=== PATIENT | female | born 1960 | race Caucasian/White ===

== ENCOUNTER 2017-03-13 18:00 | Emergency (ER) | payer BC, SELFPAY ==
[2017-03-13 18:33] VITALS: BP 128/83; PULSE 92; RESP 18; TEMP 36.6; O2SAT 94; BMI 23.5
[2017-03-13 18:42] LABS: Adenovirus,PCR Not Detected (NotDetected); Bordetella Pertussis Not Detected (NotDetected); Chlamydophila Pneumoniae, PCR Not Detected (NotDetected); Coronavirus 229E Not Detected (NotDetected); Coronavirus NL63 Not Detected (NotDetected); Coronavirus OC43 Not Detected (NotDetected); Coronovirus HKU1,PCR Not Detected (NotDetected); Human Metapneumovirus Not Detected (NotDetected); Influenza A, PCR Not Detected (NotDetected); Influenza AH1, 2009 Not Detected (NotDetected); Influenza AH1, PCR Not Detected (NotDetected); Influenza AH3,PCR Not Detected (NotDetected); Influenza B, PCR Not Detected (NotDetected); Mycoplasma Pneumoniae, PCR Not Detected (NotDected); Parainfluenza 1, PCR Not Detected (NotDetected); Parainfluenza 2, PCR Not Detected (NotDetected); Parainfluenza 3, PCR Not Detected (NotDetected); Parainfluenza 4, PCR Not Detected (NotDetected); Respiratory Syncytial Virus Not Detected (NotDetected); Rhinovirus/Enterovirus Not Detected (NotDetected)
--- NOTE | 2017-03-13 18:45 | HMH.EDUTC ---
[facility] [place] Clinical Impression: Upper respiratory infection Qualifiers: URI type: unspecified URI Qualified Code(s): J06.9 - Acute upper respiratory infection, unspecified Disposition: Home, Self-Care Condition on Discharge: Good Instructions: Cough, DI for Nasal Congestion, Sore Throat Additional Instructions: Follow up with family doctor FOllow up with family doctor to get results of upper respiratory panel Begin taking prescribed medication Return if needed Over the counter Motrin or Tylenol as needed for fever or pain Referrals: Sen Rdz [Primary Care Provider] - Time of Disposition: 19:23 Medical Decision Making - Medical Records Medical records reviewed: Yes: I reviewed the patient's medical records. Vital Signs: 03/13/17 18:33 Temperature 97.9 F Temperature Source Temporal Artery Scan Pulse Rate [Right Radial] 92 H Respiratory Rate 18 Blood Pressure [Right Arm] 128/83 Blood Pressure Mean [Right Arm] 98 Blood Pressure Source [Right Arm] Automatic Cuff Blood Pressure Position [Right Arm] Sitting 02 Sat by Pulse Oximetry 94 L Oxygen Delivery Method Room Air Orders (Tests/Meds): ED MEDICATIONS Discontinued Medications Generic Name Dose Route Start Last Admin Trade Name Lucianoq PRN Reason Stop Dose Admin Ceftriaxone Sodium 1 gm 03/13/17 19:18 Rocephin 1gm Vial IM 03/13/17 19:19 ONCE ONE Lidocaine HCl 0 ml 03/13/17 19:18 Lidocaine 1% 10ml Mdv IM 03/13/17 19:19 ONCE ONE Methylprednisolone Sodium Succinate 125 mg 03/13/17 19:18 Solu-Medrol 125mg/2ml Vial IM 03/13/17 19:19 ONCE ONE ORDERS Category Date Time Status Upper Respiratory Panel, PCR Stat Lab 03/13/17 18:30 Received - Roel Inquiry Pt receiving controlled substance: No Roel was queried for this patient: No [facility] [place] - General Stated complaint: body aches Mode of Arrival: Family Vehicle Source of Information: Patient Limitations: No Limitations Description of Symptoms (Recalled from Triage Doc. by RN): PT STATES SHE HAS HAD A RUNNY NOSE, HEAD CONGESTION, AND BODY ACHES FOR 4 WEEKS. HEENT Symptoms (Recalled from RN notes): Yes (RUNNY NOSE, HEAD CONGESTION,FEVER BODY ACHES) Resp Symptoms (Recalled from RN notes): No Skin Symptoms (Recalled from RN notes): No MS Symptoms (Recalled from RN notes): No Functional Status (Recalled from RN notes): NA - History of Present Illness Provider Complaint: Patient state that she has been having stuffy nose, cough sore throat and upper respiratory symptoms now for almost a month State that she has seen family doctor about 2 weeks ago and was given medication for it but state hat she is now having body aches chills and flu like symptoms - Related Data Allergies Allergy/AdvReac Type Severity Reaction Status Date / Time No Known Allergies Allergy Verified 03/13/17 18:40 - Worker's Comp Is this a Worker's Comp case?: No [facility] History I have reviewed the patient's past medical history: Yes - *Social History Smoking Status: Never smoker Alcohol Intake: never - Psychiatric History Expresses thoughts of harming self/others: None Suicide Plan Description: No Plan ROS Obtained: Yes All systems reviewed & no additional complaints - Constitutional Constitutional: Reports body ache, Reports chills, Reports fever(s), Reports headache(s) - ENT Ears, Nose, Mouth, and Throat: Reports sinus pain, Reports sore throat Physical Exam - General General appearance: alert, in no apparent distress - Expanded ENT Exam Nose exam: Present: sinus tenderness Comment: Throat red, irritated drainage noted in back of throat - Respiratory Respiratory exam: Present: normal lung sounds bilaterally. Absent: respiratory distress - Cardiovascular Cardiovascular exam: Present: regular rate, normal rhythm. Absent: JVD - Abdominal Exam Abdominal exam: Present: soft, normal bowel sounds. Absent: distention, tenderness, guardi
--- NOTE | 2017-03-13 18:55 | ED_ITS ---
[facility] [place] Disposition Clinical Impression: Upper respiratory infection Qualifiers: URI type: unspecified URI Qualified Code(s): J06.9 - Acute upper respiratory infection, unspecified Disposition: Home, Self-Care Condition on Discharge: Good Instructions: Cough, DI for Nasal Congestion, Sore Throat Additional Instructions: Follow up with family doctor FOllow up with family doctor to get results of upper respiratory panel Begin taking prescribed medication Return if needed Over the counter Motrin or Tylenol as needed for fever or pain Referrals: Sen Rdz [Primary Care Provider] - Time of Disposition: 19:23 Medical Decision Making - Medical Records Medical records reviewed: Yes: I reviewed the patient's medical records. Vital Signs: 03/13/17 18:33 Temperature 97.9 F Temperature Source Temporal Artery Scan Pulse Rate [Right Radial] 92 H Respiratory Rate 18 Blood Pressure [Right Arm] 128/83 Blood Pressure Mean [Right Arm] 98 Blood Pressure Source [Right Arm] Automatic Cuff Blood Pressure Position [Right Arm] Sitting 02 Sat by Pulse Oximetry 94 L Oxygen Delivery Method Room Air Orders (Tests/Meds): ED MEDICATIONS Discontinued Medications Generic Name Dose Route Start Last Admin Trade Name Lucianoq PRN Reason Stop Dose Admin Ceftriaxone Sodium 1 gm 03/13/17 19:18 Rocephin 1gm Vial IM 03/13/17 19:19 ONCE ONE Lidocaine HCl 0 ml 03/13/17 19:18 Lidocaine 1% 10ml Mdv IM 03/13/17 19:19 ONCE ONE Methylprednisolone Sodium Succinate 125 mg 03/13/17 19:18 Solu-Medrol 125mg/2ml Vial IM 03/13/17 19:19 ONCE ONE ORDERS Category Date Time Status Upper Respiratory Panel, PCR Stat Lab 03/13/17 18:30 Received - Roel Inquiry Pt receiving controlled substance: No Roel was queried for this patient: No [facility] [place] HPI - General Stated complaint: body aches Mode of Arrival: Family Vehicle Source of Information: Patient Limitations: No Limitations Description of Symptoms (Recalled from Triage Doc. by RN): PT STATES SHE HAS HAD A RUNNY NOSE, HEAD CONGESTION, AND BODY ACHES FOR 4 WEEKS. HEENT Symptoms (Recalled from RN notes): Yes (RUNNY NOSE, HEAD CONGESTION,FEVER BODY ACHES) Resp Symptoms (Recalled from RN notes): No Skin Symptoms (Recalled from RN notes): No MS Symptoms (Recalled from RN notes): No Functional Status (Recalled from RN notes): NA - History of Present Illness Provider Complaint: Patient state that she has been having stuffy nose, cough sore throat and upper respiratory symptoms now for almost a month State that she has seen family doctor about 2 weeks ago and was given medication for it but state hat she is now having body aches chills and flu like symptoms - Related Data Allergies Allergy/AdvReac Type Severity Reaction Status Date / Time No Known Allergies Allergy Verified 03/13/17 18:40 - Worker's Comp Is this a Worker's Comp case?: No [facility] History I have reviewed the patient's past medical history: Yes - *Social History Smoking Status: Never smoker Alcohol Intake: never - Psychiatric History Expresses thoughts of harming self/others: None Suicide Plan Description: No Plan ROS Obtained: Yes All systems reviewed & no additional complaints - Con
[2017-03-13 19:23] LABS: UTC Influenza A Antigen Negative (Negative); UTC Influenza B Antigen Negative (Negative)
== END 2017-03-13 19:41 | disposition home or self-care (01) ==
PROVIDERS: Emergency Provider Nurse Practitioner; Family Provider Nurse Practitioner Family; PCP Internal Medicine
DX: J06.9 Acute upper respiratory infection, unspecified (principal)
CPT/HCPCS: 87486; 87581; 87633; 87798; 87804; 96372; 99201; 99202

== ENCOUNTER 2022-06-17 12:05 | Emergency (ER) | payer BC, SELFPAY ==
[2022-06-17 12:25] VITALS: BP 141/81; PULSE 74; RESP 18; TEMP 37; O2SAT 97; BMI 22.3
[2022-06-17 12:36] LABS: Apearance,Urine Cloudy (Clear); Bilirubin,Urine Negative (Negative); Blood, Urine 2+ (Negative); Color,Urine Dark Yellow (Yellow); Glucose,Urine (UA) Negative (Negative); Ketones,Urine Negative (Negative); PH,Urine 5.5 (5.0-8.5); Protein,Urine 1+ (Negative); Specific Gravity, Urine 1.025 (1.005-1.030); UTC Leukocyte Esterase,Urine 2+ (Negative); UTC Nitrate,Urine Negative (Negative); Urobilinogen,Urine 0.2 EU/dl (0.2)
--- NOTE | 2022-06-17 12:40 | EXP.UTC ---
Discharge Plan Disposition Patient Disposition: Home, Self-Care Condition: Good Prescriptions Prescriptions: New cefdinir 300 mg capsule 300 mg PO BID Qty: 20 0RF phenazopyridine [Pyridium] 200 mg tablet 200 mg PO Q8H 2 Days Qty: 6 0RF Referrals Follow up/Referrals: Sen Rdz MD [Primary Care Provider] - See instructions Activity Restrictions/Add. Instructions Additional Instructions/Restrictions: *Increase fluids. Water not Soda or Tea *Start antibiotic immediately and be sure to take as ordered for the FULL length of time although you should start to see improvement over the next 48 hours *Pyridium as needed Remember this medication will turn your urine . This is normal but it will stain what ever it gets on *You should not use Pyridium for more than 48 hours. If so , follow up with your primary physician to review urine culture and ensure that antibiotic is adequate for infection *Be SURE to follow up anytime for new or worsening symptoms with your family doctor. AND in 48 hours for urine culture results with your family doctor, if you do not have a doctor then you may call back to the [facility] for urine culture results and further treatment. We do recommend that you choose and establish care with a Primary Care Physician. ?AND follow up with them ?in 10-14 days to repeat UA to ensure infection is resolved and blood no longer present *Be sure to let your PCP know that we sent urine cultures from the [facility] so they can follow up to ensure that you area the on the correct antibiotic Call your doctor office and make appointment for 48 hours (2 days from today) ?to follow up and get the results of your urine culture and further treatment Make sure to follow up with your Family Doctor if any worsening of symptoms and recheck of your urine Clinical Impressions Clinical Impression: UTI (urinary tract infection) Qualifiers: Urinary tract infection type: site unspecified Hematuria presence: with hematuria Qualified Code(s): N39.0 - Urinary tract infection, site not specified Instructions Patient Instructions: DI for Sinusitis, DI for Urinary Tract Infection (UTI) Discharge ED Provider: Damari Braxton [facility] [place] HPI General Stated complaint: Possible UTI Mode of Arrival: Ambulatory Source of Information: Patient Limitations: No Limitations Time Seen by Provider: 06/17/22 12:40 Description of Symptoms (Recalled from Triage Doc. by RN): PATIENT C/O LOWER BACK PAIN, BURNING/FREQUENCY WITH URINATION, AND SINUS PRESSURE THAT STARTED A COUPLE OF DAYS AGO HEENT Symptoms (Recalled from RN notes): Yes Resp Symptoms (Recalled from RN notes): No Skin Symptoms (Recalled from RN notes): No MS Symptoms (Recalled from RN notes): No Functional Status (Recalled from RN notes): WNL History of Present Illness Provider Complaint: Patient states that she feels like she may have a UTI again States that she gets them often States that she has been having achy like feeling in her right lower back with urgency and frequency and some burning with urination like she gets with UTI States that she is also having some sinus congestion and pressure and thinks she may have a sinus infection Related Data Previous Rx's Medication Instructions Recorded cefdinir 300 mg capsule 300 mg PO BID #20 caps 06/17/22 phenazopyridine 200 mg tablet 200 mg PO Q8H pain 2 days #6 tabs 06/17/22 (Pyridium) Allergies Allergy/AdvReac Type Severity Reaction Status Date / Time No Known Allergies Allergy Verified 03/13/17 18:40 Worker's Comp Is this a Worker's Comp case?: No PFSH PFS Disclaimer: The information contained in this section may have been updated after the patient was seen, as this information can be updated by other users. Social History Smoking Status: Never smoker alcohol intake: never current occupational status: unemployed Travel in the last 8 weeks: None ROS Obtained: Yes All systems reviewed & no additional complaints except as
[2022-06-17 12:52] VITALS: BP 141/81; PULSE 74; RESP 18; TEMP 37; O2SAT 97
== END 2022-06-17 12:55 | disposition home or self-care (01) ==
PROVIDERS: Emergency Provider Nurse Practitioner; PCP Internal Medicine
DX: N39.0 Urinary tract infection, site not specified (principal); B96.89 Other specified bacterial agents as the cause of diseases classified elsewhere; M54.59 Other low back pain
CPT/HCPCS: 81003; 87086; 87088; 87186; 99204; 99212; 99214; G0463

== ENCOUNTER 2024-04-03 09:43 | Emergency (ER) | payer MEDICARE, SELFPAY ==
[2024-04-03] VITALS (7 sets, daily range): BP systolic 115–143; BP diastolic 66–107; PULSE 75–92; RESP 16–24; TEMP 36.5–36.6; O2SAT 93–96; BMI 20.5
[2024-04-03] MEDS: DEXAMETHASONE 1MG/1ML INTENSOL 10ML UDC (ER) 10 MG PO (10:06)
[2024-04-03] MEDS: EPINEPHrine 1 MG/ML AMPUL 0.3 MG IM (10:06)
--- NOTE | 2024-04-03 10:06 | ED_ITS ---
Discharge Plan Disposition Patient Disposition: Home, Self-Care Prescriptions Prescriptions: New epinephrine [EpiPen 2-Desmond] 0.3 mg/0.3 mL auto-injector 0.3 mg IM Q10M PRN (Reason: anaphylaxis) Qty: 2 0RF Rx Instructions: for 2 doses No Action ipratropium-albuterol 0.5 mg-3 mg(2.5 mg base)/3 mL solution for nebulization 1 ml INHALATION Q6H PRN (Reason: Shortness Of Breath) Nucala 100 mg/mL auto-injector 100 mg SQ WEEKLY Patient Comments: INJECT 1ML UNDER THE SKIN INTO APPROPRIATE AREA DIRECTED EVERY 28 DAYS Referrals Follow up/Referrals: Sen Rdz MD [Primary Care Provider] - See instructions Activity Restrictions/Add. Instructions Additional Instructions/Restrictions: Call your family doctor to establish care for this visit to the emergency department and schedule follow-up within 48 hours to ensure improvement. If you have any worsening of your condition or any other concerning signs or symptoms, return to the emergency department or your primary care doctor for further evaluation. If you have recurrence of symptoms, epinephrine pen in lateral thigh as discussed and return immediately to the emergency department. Clinical Impressions Clinical Impression: Anaphylaxis Qualifiers: Encounter type: initial encounter Qualified Code(s): T78.2XXA - Anaphylactic shock, unspecified, initial encounter Print Language Print Language: Czech Discharge ED Provider: Lucho Maldonado General Adult HPI General Chief complaint: Allergic Reaction Stated complaint: poss allergic reaction red eye hives sore throat Time Seen by Provider: 04/03/24 09:49 Mode of Arrival: Ambulatory Source of Information: Patient Limitations: No Limitations Description of Symptoms (Recalled from ER Triage Doc. by RN): Reports possible allergic reaction to her flu shot. States her eyes are swelling, she is short of breath and has a rash. History of Present Illness HPI narrative: Please note that above description of symptoms, in this electronic medical record under categorization of recalled from ER triage doctor by RN are reflective of an initial nursing assessment, however, is not reflective of my full history and physical exam that was personally taken and clarified. Consequentially, this preceding description of symptoms, which may include the patient's categorized chief complaint in the EMR, do not reflect my personal clinical impression, and the ultimate description of history of present illness and patient stated complaints should be deferred to this section of the note. Unless stated otherwise or congruent with this section of the note, additional signs, symptoms, or incongruence should be interpreted as inaccurate with my clinical impression. Related Data Home Medications ?Medication ?Instructions ?Recorded ?Confirmed ipratropium 0.5 mg-albuterol 3 mg 1 ml inhalation Q6H PRN Shortness 04/03/24 04/03/24 (2.5 mg base)/3 mL nebulization Of Breath soln mepolizumab 100 mg/mL subcutaneous 100 mg SQ WEEKLY 04/03/24 04/03/24 auto-injector (Nucala) Previous Rx's ?Medication ?Instructions ?Recorded epinephrine 0.3 mg/0.3 mL 0.3 mg (0.3 mL) IM Q10M PRN 04/03/24 injection, auto-injector (EpiPen anaphylaxis #2 ea 2-Desmond) Allergies Allergy/AdvReac Type Severity Reaction Status Date / Time No Known Allergies Allergy Verified 03/13/17 18:40 [facility] Disclaimer: The information contained in this section may have been updated after the patient was seen, as this information can be updated by other users. Social History (Updated 06/17/22 @ 12:50 by Damari Braxton APRN) Smoking Status: Never smoker alcohol intake: never current occupational status: unemployed Travel in the last 8 weeks: None Have you lived/traveled outside [place] in past 30 days?: No Contact w/someone who lives/traveled outside [place] past 30 days?: No Exposure to someone with infectious disease in past 14 days?: No Do you have a fever (greater than 100.4 F or 38 C)?: No Have you tested positive for COVID-19: No Exposed to someone with COVID-19 in past 14 days?: No Do you have a sore throat?: No Do you have a cough?: No Do you have any weakness?: No Do you have any diarrhea?: No Are you experiencing any unusual bleeding?: No Do you have any muscle aches/pain?: No Do you have any abdominal pain?: No Are you experiencing loss of taste or smell?: No ROS Obtained: Yes All systems reviewed & no additional complaints except as documented Physical Exam General General appearance: alert Head Head exam: atraumatic and normocephalic Eye Eye exam: Present normal appearance, PERRL and EOMI ENT ENT exam: Present other (Floor of mouth swelling. No evidence of posterior oropharyngeal swelling, stridor, tongue swelling.) Neck Neck exam: Present normal inspection, full ROM and trachea midline Respiratory Respiratory exam: Present other (Mildly muffled voice); Absent respiratory distress, wheezes, stridor, accessory muscle use or prolonged expiratory phase Cardiovascular Cardiovascular exam: Present regular rate, normal rhythm and other (Pulses equal symmetric in upper and lower extremities) Abdominal Exam Abdominal exam: Present soft; Absent distention, tenderness or pulsatile mass Extremities Exam Extremities exam: Absent edema Neurological Exam Neurological exam: Present alert, oriented X3 and CN II-XII intact; Absent motor sensory deficit Skin Skin exam: Present warm, dry, rash and erythema; Absent diaphoresis Medical Decision Making Medical Records Medical records reviewed: Yes I reviewed the patient's medical records. Screening: Per USPSTF and CDC recommendations, given the prevalence of disease in our region, it is our hospital?s policy to screen for HIV and viral Hepatitis for all patients aged 18 and over and those with ongoing risk factors. Roel Inquiry Pt receiving controlled substance: No Roel was queried for this patient: No Vital Signs: 04/03/24 09:45 04/03/24 10:00 Temperature 97.7 F Temperature Source Oral Pulse Rate 89 Pulse Rate [Radial] 86 Respiratory Rate 18 Blood Pressure 143/88 H Blood Pressure [Right Arm] 130/87 Blood Pressure Mean 106 Blood Pressure Mean [Right Arm] 101 Blood Pressure Source [Right Arm] Automatic Cuff Blood Pressure Position [Right Arm] Sitting 02 Sat by Pulse Oximetry 95 96 Oxygen Delivery Method Room Air Room Air Orders (Tests/Meds): ED MEDICATIONS Discontinued Medications Generic Name Dose Route Start Last Admin Trade Name Stephane PRN Reason Stop Dose Admin Dexamethasone 10 mg 04/03/24 10:04/03/24 10:06 Dexamethasone 1mg/1ml Intensol 10ml Udc (Er) PO 04/03/24 10:03 10 mg ONCE ONE Administration Diphenhydramine HCl 50 mg 04/03/24 10:04/03/24 10:07 Diphenhydramine 25mg Capsule PO 04/03/24 10:03 50 mg ONCE ONE Administration Epinephrine HCl 0.3 mg 04/03/24 10:02 04/03/24 10:06 Epinephrine 1 Mg/Ml Ampul IM 04/03/24 10:03 0.3 mg ONCE ONE Administration Famotidine 20 mg 04/03/24 10:02 04/03/24 10:07 Famotidine 20mg Tablet PO 04/03/24 10:03 20 mg ONCE ONE Administration Ondansetron HCl 4 mg 04/03/24 10:02 04/03/24 10:07 Ondansetron 4mg Odt SL 04/03/24 10:03 4 mg ONCE ONE Administration ORDERS Category Date Time Status HIV Combo Stat Lab 04/03/24 09:54 Ordered Hepatitis C Ab Qual. W/ RFX Stat Lab 04/03/24 09:54 Ordered Medical Decision Narrative: 63-year-old female presenting with allergic reaction. She states that she received the flu vaccination yesterday, 04/02 and has been having progressive redness and swelling of the face since that time. States that today, 04/03, had muffled voice, difficulty catching breath states that she felt her throat was swelling up and came in for further evaluation. Also having periorbital erythema, tongue swelling. 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 They did seem to help quite a bit, but came in due to progressive symptoms. Patient does state this is the first year she has ever received the RSV vaccination as well. No other acute exposures or changes. 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 History was obtained via conversation with patient. On arrival, patient hemodynamically stable, alert, oriented x4, appropriate, GCS 15, moving all extremities spontaneously, pupils equal and reactive to light. Full physical exam performed and significant for clinically well-appearing female who is in no acute distress. She does have facial erythema and mild periorbital swelling. No evidence of ocular involvement or conjunctival injection. No evidence of mucosal or oral lesions. She does have floor of mouth/base of tongue swelling and mildly muffled voice. No evidence of stridor. Speaking in full sentences. Rash also on upper and lower extremities as well as trunk. Lungs are clear, but patient did recently use inhalers prior to arrival. Nontachycardic and normotensive. Differential includes anaphylaxis, medication interaction, among others. Patient placed on continuous cardiac monitoring and continuous pulse ox with initial blood pressure 130/87, heart rate 86, saturation 95% on room air. Patient was given IM epinephrine, steroid, Benadryl, Pepcid for symptomatic management and correction of underlying abnormalities. Patient was placed in observation beginning at 10 AM in order to give epinephrine, monitor for improvement and observe for rebound symptoms and determine need for admission versus home-going. The patient was provided cardiac monitoring, serial exams, meds while awaiting results. On reevaluation, patient much better. No facial erythema, periorbital edema, floor of mouth or tongue swelling. Appears much better and phonating more loudly. At this time, I feel patient is appropriate for discharge. Total observation time 2 and half hours. Given patient presentation, workup, history, this most likely represents anaphylaxis. Close return precautions were discussed. EpiPen sent to the pharmacy. Because patient at baseline without signs or symptoms of clinical decompensation, deemed appropriate for discharge. Results were relayed to patient who voiced understanding and were agreeable to outpatient management and follow up. I discussed my clinical impression with patient and answered all questions. At this time, the evidence for any other entities in the differential is ins ufficient to warrant any further testing or ED observation. This was explained as well. Advisory was given that persistent or worsening symptoms require further evaluation. I confirmed the understanding of this discussion. Cooky Packer disclaimer Much of this encounter note is an electronic facilities specialist spoken language to printed text. Electronic facilities specialist of the spoken language may permit errors. Although I have reviewed the note, some errors may still exist. Critical Care Critical Care Time Critical Care Time: Yes (immunologic) Attestation: On 04/03/24, the high probability of a clinically significant, sudden or life threatening deterioration of the following system(s) required my full and direct attention, intervention and personal management. The time I documented below is in addition to time spent performing reported procedures but includes the following listed in this critical care notation. Total Time Total Critical Care Time: 35
[2024-04-03] MEDS: ONDANSETRON 4MG ODT 4 MG SL (10:07)
[2024-04-03] MEDS: diphenhydrAMINE 25MG CAPSULE 50 MG PO (10:07)
[2024-04-03] MEDS: FAMOTIDINE 20MG TABLET 20 MG PO (10:07)
--- NOTE | 2024-04-03 10:08 | PC.NURSE ---
pt provided warm blanket
--- NOTE | 2024-04-03 10:20 | PC.NURSE ---
Called pt's , Bert, per pt request to update him on the POC and potential for monitoring for 3 hr.
--- NOTE | 2024-04-03 12:27 | PC.NURSE ---
ROUNDED ON THE PT. THE PT VOICES THAT SHE DOES NOT NEED ANYTHING AT THIS TIME. CALL LIGHT IS WITHIN REACH OF THE PT.
== END 2024-04-03 12:38 | disposition home or self-care (01) ==
PROVIDERS: Emergency Provider Emergency Medicine; PCP Internal Medicine
DX: T78.2XXA Anaphylactic shock, unspecified, initial encounter (principal); R06.02 Shortness of breath; R21 Rash and other nonspecific skin eruption; H57.89 Other specified disorders of eye and adnexa
CPT/HCPCS: 96372; 99291; J0171; Q0162